=== PATIENT | male | born 1980 | race Caucasian/White ===

== ENCOUNTER 2016-08-05 13:43 | Emergency (ER) | payer MEDICAID ==
[~2016-08-05] VITALS: Ht 175.3 cm; Wt 68.0 kg
[2016-08-05] MEDS ORDERED: LORAZEPAM 1 MG TABLET PO ONE (14:00)
[2016-08-05] MEDS ORDERED: OLANZAPINE 5 MG/TAB.RAPDIS PO ONE (14:00)
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
--- NOTE | 2016-08-05 14:02 | NUR ---
DR RANGEL AT BEDSIDE FOR EVAL.
[2016-08-05 14:09] LABS: BASOPHILS % (AUTO) 0.7 % (0.0-2.0); EOSINOPHILS # (AUTO) 0.1 /CMM (0.0-0.7); EOSINOPHILS % (AUTO) 1.3 % (0.0-6.0); HEMATOCRIT 44 % (39-51); HEMOGLOBIN 11.7 g/dL (13.5-17.5); LYMPHOCYTES # (AUTO) 1.7 /CMM (0.8-4.8); LYMPHOCYTES % (AUTO) 24.3 % (20.0-44.0); MEAN CORPUSCULAR HEMOGLOBIN 23 PG (26.0-33.0); MEAN CORPUSCULAR HGB CONC 27 g/dl (31.0-36.0); MEAN CORPUSCULAR VOLUME 85 fL (80-96); MONOCYTES # (AUTO) 0.4 /CMM (0.1-1.30); MONOCYTES % (AUTO) 5.5 % (2.0-12.0); NEUTROPHILS # (AUTO) 4.7 /CMM (1.8-8.9); NEUTROPHILS % (AUTO) 68.2 % (43.0-81.0); PLATELET COUNT (AUTO) 334 /CMM (150-450); RDW COEFFICIENT OF VARIATION 12.7 (11.5-15.0); RED BLOOD CELL COUNT(AUTO) 5.16 MIL/uL (4.5-6.0); WHITE BLOOD COUNT (AUTO) 6.9 K/uL (4.3-11.0)
[2016-08-05 14:18] LABS: CALCIUM, SERUM 7.9 mg/dL (8.5-10.1); CARBON DIOXIDE 28 mmol/L (21-32); CHLORIDE 106 mmol/L (98-107); CREATININE 0.7 mg/dL (0.6-1.3); GFR 127 mL/min (>60); GLUCOSE 119 mg/dL (74-106); POTASSIUM 3.7 mmol/L (3.5-5.1); SODIUM SERUM 140 mmol/L (136-145); UREA NITROGEN, BLOOD 8 mg/dL (7-18)
[2016-08-05 14:21] LABS: ALCOHOL, BLOOD < 3 mg/dL (0-0)
[2016-08-05] MEDS ORDERED: OLANZAPINE 5 MG/TAB.RAPDIS ONE (14:22)
[2016-08-05] MEDS ORDERED: LORAZEPAM 1 MG TABLET ONE (14:22)
--- NOTE | 2016-08-05 14:43 | NUR ---
CALLED NAY FELICIANO FOR PSYCH EVAL
--- NOTE | 2016-08-05 15:19 | NUR ---
ART SENIOR COLDFUSION DEVELOPER AT BEDSIDE FOR PSYCH EVAL.
[2016-08-05 15:41] LABS: PHENCYCLIDINE SCREEN,URINE NEGATIVE (NEGATIVE)
[2016-08-05 15:42] LABS: CANNABINOID, URINE POSITIVE (NEGATIVE)
--- NOTE | 2016-08-05 16:05 | NUR ---
PT RESTING IN BED. STABLE VITALS. SITTER AT BEDSIDE. WILL CONTINUE TO MONITOR.
--- NOTE | 2016-08-05 17:14 | NUR ---
MIRTA CALI [phone] [facility]
--- NOTE | 2016-08-05 17:18 | NUR ---
CALLED YADIRA MESSER FOR PSYCH EVAL
--- NOTE | 2016-08-05 18:11 | NUR ---
PT TURNED OVER TO [facility] [employer] [facility]. WILL BE TRANSPORTING TO [facility]. PT IS IN STABLE CONDITION.
[2016-08-05 18:12] VITALS: BP 136/74
== END 2016-08-05 18:13 ==
LOC: ER 13:44
DX: F23 Brief psychotic disorder (principal); F12.10 Cannabis abuse, uncomplicated
CPT/HCPCS: 36415; 80048-TC; 80305; 85025-TC; A4606; G0480; Z7610